=== PATIENT | female | born 1975 | race American Indian/Alaskan Native ===

== ENCOUNTER 2018-06-04 06:00 | Day surgery (SDC) | payer MEDICAID ==
[2018-06-04] MEDS ORDERED: LACTATED RINGERS 1,000 ML IV SCH (06:27)
[2018-06-04] MEDS ORDERED: NACL BACTERIOSTATIC INFILTRATI ONE (06:34)
[2018-06-04 07:21] VITALS: BP 137/85
== END 2018-06-04 07:00 | disposition home or self-care (01) ==
LOC: OR 06:00
PROVIDERS: ATTEND Obstetrics & Gynecology
DX: N75.0 Cyst of Bartholin's gland (principal); I10 Essential (primary) hypertension; J45.909 Unspecified asthma, uncomplicated; Z53.8 Procedure and treatment not carried out for other reasons; Z79.899 Other long term (current) drug therapy; Z91.013 Allergy to seafood; Z87.440 Personal history of urinary (tract) infections; Z72.89 Other problems related to lifestyle; Z98.890 Other specified postprocedural states
CPT/HCPCS: 81025

== ENCOUNTER 2018-08-20 07:33 | Day surgery (SDC) | payer MEDICAID, OTHER ==
--- NOTE | 2018-08-20 08:39 | Anesthesia Consultation ---
Anesthesia Consult and Med Hx Date of service: 08/20/18 - Airway Anesthetic Teeth Evaluation: Good ROM Head & Neck: Adequate Mental/Hyoid Distance: Adequate Mallampati Class: Class II Intubation Access Assessment: Good - Pulmonary Exam CTA: Yes - Cardiac Exam Cardiac Exam: RRR - Pre-Operative Health Status ASA Pre-Surgery Classification: ASA2 Proposed Anesthetic Plan: General - Pulmonary Hx Smoking: No Hx Asthma: Yes - Cardiovascular System Hx Hypertension: Yes - Central Nervous System Hx Psychiatric Problems: No - Other Systems Hx Alcohol Use: Yes (Occas) Hx Cancer: No
--- NOTE | 2018-08-20 08:40 | Anesthesia Day of Surgery ---
Anesthesia Day of Surgery - Day of Surgery Patient Examined: Yes Patient H&P Reviewed: Yes Patient is NPO: Yes
[2018-08-20] MEDS ORDERED: LACTATED RINGERS 1,000 ML IV SCH (09:00)
[2018-08-20] MEDS ORDERED: VERSED IV NR (09:00)
--- NOTE | 2018-08-20 09:30 | Short Stay Summary ---
Short Stay Documentation Date of service: 08/20/18 Narrative H&P: Pt is a 42yo BF presents for surgical evaluation and treatment of a recurrent left Bartholin cyst. The cyst has been drained several times and now she desires complete removal of the Bartholin gland. She is therefore scheduled for Marsupuilization of the left Bartholin gland. - History Principal diagnosis: Left Bartholin cyst H&P: obtained from office Past Medical History: hypertension, migraines Past Surgical History: Other (Laparoscopy) Social history: no significant social history, single - Allergies and Medications Current Medications: Allergies seafood Allergy (Uncoded 08/15/18 19:30) Swelling Home Medications Medication Instructions Recorded Confirmed Last Taken Type Atenolol [Tenormin] 50 mg PO DAILY 05/30/18 08/15/18 06/04/18 History Albuterol Sulfate [Proventil Hfa] 2 puff IH Q4H PRN 08/15/18 08/15/18 Unknown History Active Medications Lactated Ringer's (Lactated Ringers) 1,000 mls @ 100 mls/hr IV DIRECT ANI Midazolam HCl (Versed) 2 mg IV PREOP NR Stop: 08/20/18 23:59 - Physical exam General appearance: no acute distress Integumentary: no rash HEENT: Atraumatic Lungs: Clear to auscultation Breasts: deferred Heart: Regular rate Gastrointestinal: normal Female Genitourinary: lesions (left Bartholin cyst) Rectal Exam: deferred Extremities: no ischemia, No edema Neurological: Normal gait, Normal speech - Brief post op/procedure progress note Date of procedure: 08/20/18 Pre-op diagnosis: Recurrent left Bartholin's cyst Post-op diagnosis: same Procedure: Marsupialization of left Bartholin gland Anesthesia: MAC Findings: A large 3 x 4 cm left Bartholin abscess Surgeon: MARKIE AYOUB Estimated blood loss: 50-100ml Pathology: list (left Bartholin's gland) Specimen disposition: to lab Condition: stable - Hospital course Hospital course: Unremarkable. - Disposition Condition at discharge: Good Disposition: [id number] TO HOME OR SELFCARE - Discharge Diagnoses (1) Cyst of left Bartholin's gland Status: Resolved Short Stay Discharge Plan Activity: no restrictions Diet: regular Wound: open to air, keep clean and dry Follow up with: PRIMARY CARE, [Primary Care Provider] - 7 Days MARKIE AYOUB MD [Staff Physician] - 14 Days Prescriptions: HYDROcodone/APAP 5-325 [[place] 5/325] 1 each PO Q6HR PRN #30 tablet PRN Reason: Pain DOXYCYCLINE Hyclate [Vibramycin] 100 mg PO Q12HR #20 capsule
[2018-08-20] MEDS ORDERED: ROBINUL ONE (10:00)
[2018-08-20] MEDS ORDERED: ANCEF/STERILE WATER 2 GM/20 ML 2 GM/20 ML SYRINGE IV NR (10:00)
[2018-08-20 10:03] LABS: Hematocrit 36.7 % (30.3-42.9); Hemoglobin 12.3 gm/dl (10.1-14.3)
[2018-08-20] MEDS ORDERED: ZOFRAN ONE (10:39)
[2018-08-20] MEDS ORDERED: SUBLIMAZE ONE (10:39)
[2018-08-20] MEDS ORDERED: XYLOCAINE MPF 2% ONE ×2 (10:39→11:10)
[2018-08-20] MEDS ORDERED: DECADRON ONE (10:39)
[2018-08-20] MEDS ORDERED: DIPRIVAN 10 MG/ML IV ONE (10:39)
[2018-08-20] MEDS ORDERED: TORADOL ONE (10:39)
[2018-08-20] MEDS ORDERED: NACL P/F VIAL (10 ML) INFILTRATI ONE (11:14)
[2018-08-20] MEDS ORDERED: XYLOCAINE MPF 2% INFILTRATI ONE (11:14)
--- NOTE | 2018-08-20 12:19 | Post Anesthesia Evaluation ---
- Post Anesthesia Evaluation Patient Participated: Yes Airway Patent: Yes Stable Respiratory Function: Yes Nausea/Vomiting: No Temp > 96.8F: Yes Pain Manageable: Yes Adequeate Hydration: Yes Anesthesia Complications: No Block Receding Appropriately: Not Applicable Patient on Ventilator: No
[2018-08-20] MEDS ORDERED: DILAUDID IV PRN (12:26)
--- NOTE | 2018-08-20 12:29 | Operative Report ---
Operative Report Operative Report: Date of procedure: 08/20/2018 Pre-operative diagnosis: Recurrent left Bartholin's cyst Post-operative diagnosis: Same Procedure name(s): Marsupialization of left Bartholin gland Surgeon: Micha Paez MD Manager Camp: None Anesthesia: Gen. LMA EBL: 100 mL Findings: A large 3 x 4 cm left Bartholin abscess Procedure: After the patient was correctly identified, she was prepped and draped in the usual sterile fashion and placed in the dorsolithotomy position. First the bladder was emptied using a straight catheter, 1% lidocaine was used to infiltrate the vaginal mucosa over the left Bartholin gland. A 15 blade was used to incise the vaginal mucosa at the introitus, and the left Bartholin gland was excised using both sharp and blunt dissection. It was removed whole and sent to pathology. The vaginal defect was re-approximated using 3-0 Vicryl suture in a running interlocking fashion, thus obliterating the defect, and the vaginal mucosal layer was re-approximated using 0 Vicryl suture in a running locking fashion. At this point the procedure was considered complete. The bladder was again straight catheterized demonstrating patency. The incision sites was again infiltrated using 5 mL of 1% lidocaine. All instruments are removed from the vagina and the patient tolerated the procedure well and was transported to recovery in stable condition.
[2018-08-20] MEDS ORDERED: DILAUDID ONE (12:33)
[2018-08-20] MEDS ORDERED: ZOFRAN IV ONE (13:28)
[2018-08-20 13:46] VITALS: BP 110/70
[2018-08-20] MEDS ORDERED: BENADRYL IV ONE (13:49)
== END 2018-08-20 13:55 | disposition home or self-care (01) ==
LOC: OR 07:33
PROVIDERS: ATTEND Obstetrics & Gynecology
DX: N75.0 Cyst of Bartholin's gland (principal); I10 Essential (primary) hypertension; J45.909 Unspecified asthma, uncomplicated; Z72.89 Other problems related to lifestyle; Z91.013 Allergy to seafood; Z79.899 Other long term (current) drug therapy; Z98.890 Other specified postprocedural states; Z98.82 Breast implant status
CPT/HCPCS: 36415; 56740; 81025; 85014; 85018; 88304; J1100; J1170; J1200; J1885; J2250; J2405; J2704; J3010; J7120

== ENCOUNTER 2021-10-13 10:04 | Day surgery (SDC) | payer MEDICAID ==
[~2021-10-13 10:04] MED LIST: SODIUM CHLORIDE 0.9% 1000 ML 1,000 ML IV SCH
[2021-10-13] MEDS ORDERED: propofoL 200 MG/20 ML VIAL IV ONE ×2 (11:11→11:35)
--- NOTE | 2021-10-13 11:16 | Anesthesia Consultation ---
Anesthesia Consult and Med Hx Date of service: 10/13/21 - Airway Anesthetic Teeth Evaluation: Good ROM Head & Neck: Adequate Mental/Hyoid Distance: Adequate Mallampati Class: Class II Intubation Access Assessment: Probably Good - Pre-Operative Health Status ASA Pre-Surgery Classification: ASA2 Proposed Anesthetic Plan: MAC - Pulmonary Hx Smoking: No Hx Asthma: Yes (well controlled) - Cardiovascular System Hx Hypertension: Yes (on/off BP meds) - Central Nervous System Hx Psychiatric Problems: No - Endocrine Hx Non-Insulin Dependent Diabetes: Yes - Other Systems Hx Alcohol Use: Yes (Occas) Hx Cancer: No
--- NOTE | 2021-10-13 11:16 | Anesthesia Day of Surgery ---
Anesthesia Day of Surgery - Day of Surgery Patient Examined: Yes Patient H&P Reviewed: Yes Patient is NPO: Yes
--- NOTE | 2021-10-13 11:55 | Operative Report ---
Operative Report Operative Report: Colonoscopy DATE:10/13/2021 ATTENDING PHYSICIAN: Jim Loredo M.D. MOTOR RACER: Jim Loredo M.D. INDICATIONS: Patient is a 45 y.o. female who presents for colorectal cancer screening . A colonoscopy is done to evaluate patient so that treatment may be directed based on the findings. CONSENT: Informed consent was obtained after the patient was advised regarding the nature of this procedure, its indications, potential benefits as well as possible complications including but not limited to bleeding, perforation, adverse reaction to medications, infection as well as cardiopulmonary complications. An informed written and verbal consent was then obtained after due opportunity was provided for questions and answers. MONITORING: Patient monitored continuously with pulse oximetry, electrocardiographic recordings as well as automatic blood pressure recordings. Patient remained stable throughout the procedure with no untoward events. PREOPERATIVE ASSESSMENT: Patient was assessed immediately prior to this procedure for capacity to tolerate moderate sedation/monitored anesthesia care. [place] [employer] classification is 2. Mallampati class is 2. Hyomental distance is 3. INSTRUMENT: Olympus video colonoscope [id number]. MEDICATIONS: Propofol given intravenously in divided doses. For details, please refer to anesthesia records. DESCRIPTION OF PROCEDURE: Patient was placed in the left lateral decubitus position, after achieving sedation, a digital rectal examination was performed following which the colonoscope was introduced into the anal verge and advanced under direct visualization to the cecum which was identified by the ileocecal valve, the appendiceal orifice, the cecal strap as well as by direct transillumination in the right lower quadrant. Color texture mucosa and anatomy of the colon were carefully examined with the colonoscope. The colonoscope was then gently withdrawn with careful inspection of all mucosa surfaces. The patient tolerated the procedure well with no complications. After completion of the examination, patient was transferred to the recovery room. The prep written regimen was GoLYTELY and the preparation was adequate with the [place] prep scale score of 6. The following findings were noted. FINDINGS: Patient had very mild diverticulosis involving the sigmoid colon and the descending colon. The rest of the colon was normal. On the retroflexed view at the anal verge patient had prominent internal hemorrhoids. IMPRESSION: Mild colonic diverticulosis. Prominent internal Hemorrhoids otherwise normal colonoscopy. . PLAN: High fiber diet. Repeat colonoscopy in 10 years Patient may benefit from hemorrhoidal value ligation if she has symptoms
--- NOTE | 2021-10-13 14:54 | Post Anesthesia Evaluation ---
- Post Anesthesia Evaluation Patient Participated: Yes Airway Patent: Yes Stable Respiratory Function: Yes Nausea/Vomiting: No Temp > 96.8F: Yes Pain Manageable: Yes Adequeate Hydration: Yes Anesthesia Complications: No
[2021-10-13 18:09] VITALS: BP 115/79
== END 2021-10-13 12:20 | disposition home or self-care (01) ==
LOC: GIO 10:04
PROVIDERS: ATTEND Internal Medicine Gastroenterology
DX: K62.5 Hemorrhage of anus and rectum (principal); K57.30 Diverticulosis of large intestine without perforation or abscess without bleeding; K64.8 Other hemorrhoids; I10 Essential (primary) hypertension; R41.82 Altered mental status, unspecified; E11.9 Type 2 diabetes mellitus without complications; Z72.89 Other problems related to lifestyle; Z79.899 Other long term (current) drug therapy; Z98.890 Other specified postprocedural states
CPT/HCPCS: 45378; 81025; 82962; J2704; J7030